=== PATIENT | female | born 1990 | race Caucasian/White ===

== ENCOUNTER → 2016-10-01 | Outpatient (REF) | payer BC | LOC: M LAB REF 12:35 | PROVIDERS: ATTEND Nurse Practitioner Women's Health | DX: R39.89 Other symptoms and signs involving the genitourinary system (principal) ==

== ENCOUNTER → 2019-11-23 | Outpatient (REF) | payer OTHER ==
[2019-11-23 18:03] LABS: HEMOGLOBIN 12.3 g/dl (12.0-15.5); MEAN CORPUSCULAR HEMOGLOBIN 30.3 pg (27.0-33.0); MEAN CORPUSCULAR HGB CONC 33.2 g/dl (32.0-36.5); MEAN CORPUSCULAR VOLUME 91.1 fl (80.0-96.0); PLATELET COUNT, AUTOMATED 220 10^3/uL (150-450); RED BLOOD COUNT 4.06 10^6/uL (4.00-5.40); WHITE BLOOD COUNT 9.7 10^3/uL (4.0-10.0)
[2019-11-23 21:12] LABS: CHLAMYDIA DNA AMPLIFICATION NEGATIVE (NEGATIVE); GC DNA AMPLIFICATION NEGATIVE (NEGATIVE)
[2019-11-24 09:17] LABS: HEPATITIS C VIRUS ABY INDEX 0.1 INDEX (<0.8); HIV 1&2 SCREEN CENTAUR NEGATIVE (NEGATIVE)
== END ==
LOC: M PLALAB 13:59
PROVIDERS: ATTEND Advanced Practice Midwife
DX: Z34.91 Encounter for supervision of normal pregnancy, unspecified, first trimester (principal)

== ENCOUNTER → 2020-02-04 | Outpatient (CLI) | payer OTHER ==
--- NOTE | 2020-02-23 13:50 | REP ---
COMPLETE OBSTETRICAL ULTRASOUND CLINICAL: Anatomical evaluation. TECHNIQUE: Transabdominal obstetrical ultrasound with color Doppler evaluation. FINDINGS: Ultrasound examination demonstrates single live intrauterine in variable presentation. Placenta noted posteriorly and grade 1 without evidence for placenta previa or abruption. Amniotic fluid volume is normal. Cervix measures 4.5 cm in length and appears closed. No evidence for nuchal cord. Gestational age by last menstrual period (LMP) 18 weeks 3 days with estimated date of delivery 07/04/2020. Gestational age by current measurements 18 weeks 6 days with estimated date of delivery 07/01/2020. heart rate (FHR) 152 beats per minute. MEASUREMENTS: BPD 4.1 cm 18 weeks 3 days HC 15.0 cm 18 weeks 0 days AC 13.7 cm 19 weeks 1 day FL 2.7 cm 18 weeks 0 days HL 2.6 cm 18 weeks 2 days HC/AC ratio 1.09 Estimated weight 246 g (53rd percentile) Anatomical assessment demonstrates normal cranium, choroid plexus, cerebellum/posterior fossa, facial features, four chamber heart/ventricular outflow tracts, diaphragm, stomach, kidney/bladder, spine, three-vessel cord, and extremities. IMPRESSION: * Single live intrauterine in variable presentation demonstrating appropriate estimated weight and growth. * Anatomical assessment is complete and normal. No gross abnormalities are identified. MTDD
== END ==
LOC: M WHC 07:01
PROVIDERS: ATTEND Obstetrics & Gynecology
DX: Z36.3 Encounter for antenatal screening for malformations (principal); Z3A.18 18 weeks gestation of pregnancy

== ENCOUNTER → 2020-03-28 | Outpatient (REF) | payer OTHER ==
[2020-03-28 14:03] LABS: MEAN CORPUSCULAR HEMOGLOBIN 32.3 pg (27.0-33.0); MEAN CORPUSCULAR HGB CONC 33.3 g/dl (32.0-36.5); PLATELET COUNT, AUTOMATED 192 10^3/uL (150-450); RED BLOOD COUNT 3.71 10^6/uL (4.00-5.40); WHITE BLOOD COUNT 10.2 10^3/uL (4.0-10.0)
== END ==
LOC: M PLALAB 08:51
PROVIDERS: ATTEND Advanced Practice Midwife
DX: Z34.90 Encounter for supervision of normal pregnancy, unspecified, unspecified trimester (principal); Z3A.00 Weeks of gestation of pregnancy not specified

== ENCOUNTER 2020-06-08 10:34 | Outpatient (CLI) | payer OTHER ==
[~2020-06-08] VITALS: Ht 175.3 cm; Wt 79.7 kg
[2020-06-08] MEDS ORDERED: MULTTAB20 PO (10:52)
[2020-06-08 10:59] VITALS: BP 128/75
[2020-06-08 13:51] VITALS: BP 119/65
--- NOTE | 2020-06-08 16:37 | IPNPDOC ---
Text Note Date of Service The patient was seen on 06/08/20. NOTE Triage visit Johana is a 29yo with SIUP at 36w2d presenting to triage for slipping on ice and fall onto left side at 0900 this morning. She note she felt some abdominal/uterine "cramping" afterwards and maybe some pelvic pressure, but feeling better now. No LOF, no vaginal bleeding, no regular ctx. Baby is moving well. Vitals wnl, afebrile Gen: WDWN, sitting up comfortable in NAD Abdomen: soft, gravid, NTTP Extremities: no edema of BLE Back/side: no bruising Cat I FHRT x4 hours with +accels, -decels, mod vinny No regular uterine activity Assessment: Johana is a 29yo with SIUP at 36w2 with NO e/o placental abruption with normal exam, reassuring status. Plan: -Discharge to home -Follow up at routine OB visit tomorrow as scheduled -Patient to rest today and hydrate well -Tylenol prn discomfort -Discussed return precautions at length Kajal Rodney MD VS,Fay, I+O VS, Fay, I+O Vital Signs Date Time Temp Pulse Resp B/P (MAP) Pulse Ox O2 Delivery O2 Flow Rate FiO2 06/08/20 13:51 88 119/65 (83) 06/08/20 10:59 98.4 18 Kajal Rodney MD Jun 08, 2020 16:37
== END 2020-06-08 15:25 | disposition home or self-care (01) ==
LOC: M LDO 10:34
PROVIDERS: ATTEND Obstetrics & Gynecology
DX: O99.891 Other specified diseases and conditions complicating pregnancy (principal); W00.0XXA Fall on same level due to ice and snow, initial encounter; Z3A.36 36 weeks gestation of pregnancy

== ENCOUNTER → 2020-06-09 | Outpatient (REF) | payer OTHER ==
[~2020-06-09] MED LIST: MULTTAB20 PO
== END ==
LOC: M SFHCWAGY 13:17
PROVIDERS: ATTEND Advanced Practice Midwife
DX: Z34.93 Encounter for supervision of normal pregnancy, unspecified, third trimester (principal)

== ENCOUNTER 2020-06-23 14:45 | Outpatient (CLI) | payer OTHER ==
[~2020-06-23] VITALS: Ht 175.3 cm; Wt 80.6 kg
[2020-06-23] MEDS ORDERED: TUMS500C PO (15:02)
[2020-06-23 15:18] VITALS: BP 133/74
--- NOTE | 2020-06-23 15:40 | IPNPDOC ---
Text Note Date of Service The patient was seen on 06/23/20. NOTE Outpatient Subjective: Johana is a 29 y/o at 38.3 weeks, LUCINDA 07/04/2020 by 1st trimester U/S on 11/23/19 at 7.5 weeks. She started care at [facility] in the first trimester. Presents to L&D today with a c/o contractions that started to become more regular around 11am. Denies vaginal bleeding, LOF. Reports active movement. Denies any other concerns. 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 Appears comfortable during contractions. Respiratory: Regular rate, no accessory muscle use Abdomen: Gravid, soft non-tender. Fetus: 125bpm baseline, moderate variability, positive accelerations, no decelerations, Category 1 [place]: UC every 5-7 minutes, lasting 80-120 seconds, palpate mild. Extremities: No edema, negative calf tenderness. SVE: 4-5/75/-2, soft, posterior by PAO Keller unchanged from SVE in office on 06/22/20 Assessment: IUP at 38.3weeks. Contractions at Term. Not in active labor. Not SROM. Plan: NST SVE in 1-2 hours Activity as tolerated Naomy Muñoz CNM Jun 23, 2020 15:40
--- NOTE | 2020-06-23 16:59 | IPNPDOC ---
Text Note Date of Service The patient was seen on 06/23/20. NOTE Outpatient Subjective: Johana reports contractions feel the same. Denies LOF, vaginal bleeding. Reports active movement. She has been using the birthing ball at the bedside. Objective: VS: normotensive, afebrile General: Alert and oriented x3. Respiratory: Respirations regular, no accessory muscle use Fetus: 125bpm baseline, moderate variability, no decelerations, positive accelerations, Category 1 FHT. [place]: UC 4-6 minutes, lasting 60-100 seconds, mild on palpation, resting tone soft SVE: 4-5/75/-2 by PAO Keller, unchanged from last SVE Assessment: IUP at 38.3 weeks. Contractions at term. Not in active labor. No SROM. Plan: Discharge home on labor precautions, discussed reasons to return including vaginal bleeding, LOF, contractions that become more intense or closer together, decreased movement. Patient and S/O agreeable to discharge at this time. VS,Fishbone, I+O VS, Fishbone, I+O Vital Signs Date Time Temp Pulse Resp B/P (MAP) Pulse Ox O2 Delivery O2 Flow Rate FiO2 06/23/20 15:18 98.9 85 133/74 (93) Naomy Muñoz CNM Jun 23, 2020 16:59
== END 2020-06-23 16:55 | disposition home or self-care (01) ==
LOC: M LDO 14:45
PROVIDERS: ATTEND Advanced Practice Midwife
DX: O47.1 False labor at or after 37 completed weeks of gestation (principal); Z3A.38 38 weeks gestation of pregnancy

== ENCOUNTER 2020-06-25 09:57 | Inpatient (IN) | payer OTHER ==
[~2020-06-25] VITALS: Ht 175.3 cm; Wt 80.0 kg
[2020-06-25] VITALS (23 sets, daily range): BP systolic 108–137; BP diastolic 57–94
[~2020-06-25 09:57] MED LIST changes: +TUMS500C PO
[2020-06-25] MEDS ORDERED: OXYTOCIN DRIP 30 UNITS in IV 1 EA IV SCH (11:00)
--- NOTE | 2020-06-25 11:01 | HPEPDOC ---
Obstetrical History & Physical General Date of Admission Jun 25, 2020 at 10:45 History of Present Illness 29 yo female at 38 5/7 weeks gestation by LMP c/w ultrasound (EDC=07/04/2020) presents with regular contractions every 2-3 minutes for the past day. She was seen in triage on 06/23/2020 for contractions, but they are stronger now. 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 Past Medical History Medical History term x 2 Surgical History: Denies/None Family History Significant Family History: No pertinent family hx Social History Marital Status: Family situation: Spouse/partner home Psychosocial History: No pertinent psych hx * Smoker: non-smoker Alcohol: Denies Allergies Coded Allergies: SEASONAL ALLERGIES (Verified Allergy, Unknown, 06/23/20) benzonatate (Verified Allergy, Unknown, 06/23/20) Medications Scheduled Calcium Carbonate (Tums) 200 Mg Tab.chew, 2 TAB PO QID for cough and congestion No122/Iron/Folic Acid ( Multi Tablet) 1 Each Tablet, 1 TAB PO DAILY Physical Examination Physical Examination GENERAL: Alert and oriented times three. BREAST: . ABDOMEN: Gravid and non-tender to touch. FETUS: Is vertex (VTX) by sterile vaginal examination (SVE), fetus is vertex (VTX) by Subhash. HEART RATE: Regular rate and rhythm. LUNGS: Clear to auscultation (CTA). EXTREMITIES: No edema. No clonus. Deep tendon reflexes (DTRs) + . Vital Signs/I&O Vital Signs Date Time Temp Pulse Resp B/P (MAP) Pulse Ox O2 Delivery O2 Flow Rate FiO2 06/25/20 10:11 98.6 84 132/76 (94) Pertinent Laboratoy Data Blood Type: O+ Group B Streptococcus: Negative Vaginal Examination Dilation: 5 cm Effacement: 70% Station: -2 Cervical Consistency: Soft Cervical Position: Posterior Presentation: Cephalic presentation Assessment Variability: Moderate Accelerations: Positive Decelerations: None Tocometer Contractions: Yes Frequency: regular, every 1-3 min. Duration: less than 60 seconds Strength: palpated as moderate Assessment/Plan Assessment Pt is a 29-year-old (G)3 para (P)2 at 38+5 weeks by LMP c/w ultrasound- week ultrasound presents to Labor and Delivery (L&D) in active labor. Plan Admit and orient. 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 Group B Streptococcus (GBS) negative. Labs and intravenous (IV) per unit protocol. Counseled on Pitocin and induction of labor (IOL). .Anticipate normal spontaneous delivery C-S as appropriate. ANTONI ANDERSON MD Jun 25, 2020 11:01
[2020-06-25] MEDS ORDERED: LR 1,000 ML IV SCH (11:15)
[2020-06-25 11:52] LABS: HEMATOCRIT 41.3 % (36.0-47.0); HEMOGLOBIN 13.8 g/dl (12.0-15.5); MEAN CORPUSCULAR HEMOGLOBIN 31.7 pg (27.0-33.0); MEAN CORPUSCULAR HGB CONC 33.4 g/dl (32.0-36.5); MEAN CORPUSCULAR VOLUME 94.9 fl (80.0-96.0); PLATELET COUNT, AUTOMATED 169 10^3/uL (150-450); RED BLOOD COUNT 4.35 10^6/uL (4.00-5.40); WHITE BLOOD COUNT 12.6 10^3/uL (4.0-10.0)
[2020-06-25] MEDS ORDERED: ACETAMINOPHEN TAB 650MG DOSE (2X325MG) PO PRN (20:00)
[2020-06-25] MEDS ORDERED: ONDANSETRON 4MG/2ML VIAL IV PRN (20:00)
[2020-06-25] MEDS ORDERED: MEASLES,MUMPS,RUBELLA VACCINE INJ (MMR-II) (90707) SC SCH (20:00)
[2020-06-25] MEDS ORDERED: OXYTOCIN DRIP 30 UNITS in IV 1 EA IV ONE (20:00)
[2020-06-25] MEDS ORDERED: DOCUSATE SODIUM 100MG CAPSULE PO PRN (20:00)
[2020-06-25] MEDS ORDERED: RHOGAM 300 MCG (1500 IU) INJ (J2790) IM SCH (20:00)
[2020-06-25] MEDS ORDERED: BENZOCAINE 20% HEMORRHOIDAL OINTMENT 28GM TUBE TOP PRN (20:00)
[2020-06-25] MEDS ORDERED: IBUPROFEN 600MG TAB PO PRN (20:00)
[2020-06-25] MEDS ORDERED: ACETAMINOPHEN 500 MG TAB PO PRN (20:00)
[2020-06-25] MEDS ORDERED: METHYLERGONOVINE MALEATE 0.2 MG TAB PO PRN (20:00)
[2020-06-25] MEDS: IBUPROFEN 800 MG TAB PO PRN (20:28)
--- NOTE | 2020-06-25 20:42 | DNPDOC ---
[facility] Delivery Note Delivery Note DATE OF DELIVERY: June 252020 PREDELIVERY DIAGNOSIS: 38-5/7 weeks' gestation and labor. POST DELIVERY DIAGNOSIS: Delivered. PROCEDURE: Spontaneous vaginal delivery. FAN BALANCER: Dr. Antoni Anderson MD ANESTHESIA: none. ESTIMATED BLOOD LOSS: 300 mL. FINDINGS: 7 pound 9 ounce female infant, Score 8/9. DELIVERY SUMMARY: Patient is a 29-year-old 3 now para 3 who was admitted to labor and delivery for labor. She eventually required Pitocin augmentation. After a short second s tage of labor lasting 5 minutes she had a spontaneous vaginal delivery of a 7 lbs. 9 oz. female infant. There was no nuchal cord. The shoulders delivered with ease. The infant was handed to the mother. Cord was doubly clamped and cut. Placenta delivered spontaneously, appeared to be intact. The patient received IV Pitocin immediately after delivery of placenta. There were no vaginal lacerations present. Sponge counts were correct. ANTONI ANDERSON MD Jun 25, 2020 20:42
[2020-06-26 06:18] VITALS: BP 119/58
[2020-06-26] MEDS: PRENATAL VITAMINS CHEWABLE TABLET PO SCH (09:00)
[2020-06-26] MEDS: IBUPROFEN 800 MG TAB PO PRN (12:24)
[2020-06-26 18:00] VITALS: BP 137/71
[2020-06-27 06:00] VITALS: BP 116/57
[2020-06-27] MEDS: PRENATAL VITAMINS CHEWABLE TABLET PO SCH (07:21)
[2020-06-27] MEDS: IBUPROFEN 800 MG TAB PO PRN (07:22)
--- NOTE | 2020-06-27 07:28 | DS.PDOC ---
Discharge Summary General Date of Admission Jun 25, 2020 at 10:45 Date of Discharge 06/27/2020 Discharge Summary PROCEDURES PERFORMED DURING STAY: . ADMITTING DIAGNOSES: 1. Active Labor at Term. DISCHARGE DIAGNOSES: 1. s/p . COMPLICATIONS/CHIEF COMPLAINT: LABOR. HISTORY OF PRESENT ILLNESS: SUBJECT: Johana is a 29-year-old 3 now Para 3-0-0-3 status post uncomplicated spontaneous vaginal delivery, doing well day # 2. She has been ambulating, voiding spontaneously without issue and tolerating regular diet. without issue. Reports lochia is like a normal period. Pain well controlled with Tylenol and Motrin. Denies c hest pain, SOB, headache, visual changes, nausea, epigastric pain. Discussed options for control including POPs, Mirena, Depo, and Nexplanon. Her is planning a vasectomy, unsure of the timing. She will decide by her 6 week follow up, declined Depo today. HOSPITAL COURSE: Uncomplicated. DISCHARGE MEDICATIONS: Please see below. ALLERGIES: Please see below. PHYSICAL EXAMINATION ON DISCHARGE: VITAL SIGNS: Please see below. GENERAL: Alert and oriented x3. HEENT: Normal on inspection. NECK: Supple, no JVD. CARDIOVASCULAR EXAMINATION: Regular rate and rhythm. RESPIRATORY EXAMINATION: Respirations regular, no accessory muscle use. ABDOMINAL EXAMINATION: Soft, nontender, no distention. Fundus firm at U-2, minimal lochia. EXTREMITIES: No edema. No calf tenderness. SKIN: Warm, dry, intact, appropriate color for race. NEUROLOGICAL EXAMINATION: Grossly intact. PSYCHIATRIC EXAMINATION: Denies s/s of depression at this time. LABORATORY DATA: Please see below. PROGNOSIS: Good. ACTIVITY: As tolerated. DIET: Regular DISCHARGE PLAN: Home with infant DISPOSITION: Stable DISCHARGE INSTRUCTIONS: 1. Nothing in the vagina for 6 weeks. 2. Tylenol and Motrin as needed. 3. Reviewed return precautions including s/s of preeclampsia, depression, endometritis, mastitis. ITEMS TO FOLLOWUP ON ON OUTPATIENT: 1. 6 week follow up. DISCHARGE CONDITION: Stable. TIME SPENT ON DISCHARGE: Greater than 15 minutes. Vital Signs/I&Os Vital Signs Date Time Temp Pulse Resp B/P (MAP) Pulse Ox O2 Delivery O2 Flow Rate FiO2 06/27/20 06:00 98.0 71 17 116/57 (76) 97 Room Air Discharge Medications Scheduled Calcium Carbonate (Tums) 200 Mg Tab.chew, 2 TAB PO QID for cough and congestion, (Reported) No122/Iron/Folic Acid ( Multi Tablet) 1 Each Tablet, 1 TAB PO DAILY, (Reported) Allergies Coded Allergies: SEASONAL ALLERGIES (Verified Allergy, Unknown, 06/23/20) benzonatate (Verified Allergy, Unknown, 06/23/20) ESSENCE VILLA CNM Jun 27, 2020 07:28
[2020-06-27] MEDS ORDERED: IBUP80TA PO (07:44)
[2020-06-27] MEDS ORDERED: ACET-683 PO (07:44)
== END 2020-06-27 10:50 | disposition home or self-care (01) | DRG 560 ==
LOC: M LDO 09:57 → M LDI 10:45 → M OBS 21:20
PROVIDERS: ADMIT Specialist; ATTEND Specialist
PROC: 10E0XZZ Delivery of Products of Conception, External Approach (ICD-10-PCS; principal; 2020-06-25)
DX: O80 Encounter for full-term uncomplicated delivery (principal); Z37.0 Single live birth; Z3A.38 38 weeks gestation of pregnancy

== ENCOUNTER → 2022-06-07 | Outpatient (REF) | payer OTHER ==
[~2022-06-07] MED LIST changes: +ACET-683 PO; +IBUP80TA PO
== END ==
LOC: M PLALAB 11:34
PROVIDERS: ATTEND Nurse Practitioner Family
DX: Z12.4 Encounter for screening for malignant neoplasm of cervix (principal)

== ENCOUNTER → 2022-08-19 | Outpatient (CLI) | payer OTHER | LOC: M WHC 13:29 | PROVIDERS: ATTEND Nurse Practitioner Family | DX: N63.11 Unspecified lump in the right breast, upper outer quadrant (principal); N60.11 Diffuse cystic mastopathy of right breast ==

== ENCOUNTER → 2023-02-07 | Outpatient (CLI) | payer OTHER ==
[2023-02-07 15:37] LABS: HEMATOCRIT 38.2 % (36.0-47.0); MEAN CORPUSCULAR HEMOGLOBIN 30.7 pg (27.0-33.0); MEAN CORPUSCULAR VOLUME 90.3 fl (80.0-96.0); PLATELET COUNT, AUTOMATED 214 10^3/uL (150-450); RED BLOOD COUNT 4.23 10^6/uL (4.00-5.40); WHITE BLOOD COUNT 10.5 10^3/uL (4.0-10.0)
[2023-02-07 16:28] LABS: HIV 1&2 SCREEN NEGATIVE (NEGATIVE)
[2023-02-07 16:36] LABS: HEPATITIS C VIRUS ABY INDEX 0.12 INDEX (<0.8)
[2023-02-07 17:10] LABS: GC DNA AMPLIFICATION NEGATIVE (NEGATIVE)
== END ==
LOC: M PLALAB 14:22
PROVIDERS: ATTEND Obstetrics & Gynecology
DX: Z36.9 Encounter for antenatal screening, unspecified (principal)

== ENCOUNTER → 2023-03-31 | Outpatient (CLI) | payer OTHER | LOC: M WHC 12:51 | PROVIDERS: ATTEND Obstetrics & Gynecology | DX: Z34.92 Encounter for supervision of normal pregnancy, unspecified, second trimester (principal); Z3A.18 18 weeks gestation of pregnancy ==

== ENCOUNTER → 2023-05-21 | Outpatient (CLI) | payer OTHER ==
[2023-05-21 15:54] LABS: HEMOGLOBIN 12.6 g/dl (12.0-15.5); MEAN CORPUSCULAR HEMOGLOBIN 31.5 pg (27.0-33.0); MEAN CORPUSCULAR HGB CONC 33.2 g/dl (32.0-36.5); PLATELET COUNT, AUTOMATED 224 10^3/uL (150-450); WHITE BLOOD COUNT 14.5 10^3/uL (4.0-10.0)
[2023-05-21 17:21] LABS: CHLAMYDIA DNA AMPLIFICATION NEGATIVE (NEGATIVE); GC DNA AMPLIFICATION NEGATIVE (NEGATIVE)
== END ==
LOC: M PLALAB 11:01
PROVIDERS: ATTEND Obstetrics & Gynecology
DX: Z36.89 Encounter for other specified antenatal screening (principal); Z3A.22 22 weeks gestation of pregnancy

== ENCOUNTER → 2023-07-30 | Outpatient (REF) | payer OTHER | LOC: M SFHCWAGY 12:59 | PROVIDERS: ATTEND Obstetrics & Gynecology | DX: Z3A.36 36 weeks gestation of pregnancy (principal) ==

== ENCOUNTER → 2023-08-11 | Outpatient (CLI) | payer OTHER ==
[2023-08-11 13:41] LABS: URIC ACID 6.1 MG/DL (3.1-7.8)
[2023-08-11 13:44] LABS: ALT/SGPT 22 U/L (7.0-40); AST/SGOT 22 U/L (<34); BILIRUBIN,TOTAL 0.5 MG/DL (0.3-1.2); GLOMERULAR FILTRATION RATE > 60.0 (>60); LDH LACTATE DEHYDROGENASE 168 U/L (120-246)
[2023-08-11 13:45] LABS: CREATININE,RANDOM URINE 19.4 MG/DL
[2023-08-11 13:48] LABS: TOTAL PROTEIN,RANDOM URINE < 6.0 MG/DL (0.0-14.0)
== END ==
LOC: M PLALAB 09:32
PROVIDERS: ATTEND Obstetrics & Gynecology
DX: R03.0 Elevated blood-pressure reading, without diagnosis of hypertension (principal)

== ENCOUNTER 2023-08-17 07:46 | Inpatient (IN) | payer OTHER ==
[2023-08-17] VITALS (40 sets, daily range): BP systolic 105–153; BP diastolic 55–90
[~2023-08-17] VITALS: Ht 175.3 cm; Wt 81.1 kg
[2023-08-17 08:47] LABS: HEMATOCRIT 36.4 % (36.0-47.0); HEMOGLOBIN 12.5 g/dl (12.0-15.5); MEAN CORPUSCULAR HEMOGLOBIN 31.5 pg (27.0-33.0); MEAN CORPUSCULAR HGB CONC 34.3 g/dl (32.0-36.5); MEAN CORPUSCULAR VOLUME 91.7 fl (80.0-96.0); PLATELET COUNT, AUTOMATED 150 10^3/uL (150-450); RED BLOOD COUNT 3.97 10^6/uL (4.00-5.40); WHITE BLOOD COUNT 10.1 10^3/uL (4.0-10.0)
[2023-08-17] MEDS: miSOPROStol 50MCG 1/2 TABLET PO PRN (09:07)
[2023-08-17] MEDS: LR 1,000 ML IV SCH (13:14)
[2023-08-17] MEDS: OXYTOCIN DRIP 30 UNITS in IV 1 EA IV SCH ×2 (13:14→23:10)
[2023-08-17] MEDS: CALCIUM CARBONATE 500 MG CHEW U/D PO ONE (15:58)
[2023-08-17] MEDS ORDERED: ONDANSETRON 4MG 2ML VIAL IV PRN (19:40)
[2023-08-17] MEDS ORDERED: diphenhydrAMINE 50MG/ML VIAL IV PRN (19:40)
[2023-08-17] MEDS ORDERED: ePHEDrine SULFATE 25 MG/5 ML(5MG/ML) SYRINGE IVP PRN (19:40)
[2023-08-17] MEDS ORDERED: EPIDURAL/PCA KEYS XX PRN (19:40)
[2023-08-17] MEDS ORDERED: NALOXONE INJ 0.4MG/1ML VIAL IV PRN (19:40)
[2023-08-17] MEDS ORDERED: LR 500 ML IV PRN (19:40)
[2023-08-17] MEDS: FENTANYL/ROPIVACAINE/NACL BAG 100 ML EPIDURAL SCH (20:15)
[2023-08-17] MEDS ORDERED: RHOGAM 300MCG (1500IU) INJ IM SCH (23:10)
[2023-08-17] MEDS ORDERED: METHYLERGONOVINE MALEATE 0.2 MG TAB PO PRN (23:10)
[2023-08-17] MEDS ORDERED: DOCUSATE SODIUM 100MG CAPSULE PO PRN (23:10)
[2023-08-17] MEDS ORDERED: DIBUCAINE 1% OINTMENT 30GM TOP PRN (23:10)
[2023-08-17] MEDS ORDERED: ACETAMINOPHEN TAB 650MG DOSE (2X325MG) PO PRN (23:10)
[2023-08-17] MEDS ORDERED: IBUPROFEN 600MG TAB PO PRN (23:10)
[2023-08-17 23:19] LABS: CORD GAS ABE A -6.5; CORD GAS HCO3 A 22.5 MMOL/L; CORD GAS O2 SAT A 60.1 %; CORD GAS PCO2 A 58.8 mmHg; CORD GAS PH A 7.201 UNITS; CORD GAS PO2 A 27.2 mmHg; CORD GAS SBC A 18.4 MMOL/L; CORD GAS TCO2 A 24.3 MMOL/L
[2023-08-17 23:20] LABS: CORD GAS ABE V -5.7; CORD GAS O2 SAT V 73.6 %; CORD GAS PCO2 V 45.4 mmHg; CORD GAS PH V 7.283 UNITS; CORD GAS PO2 V 31.4 mmHg; CORD GAS SBC V 19.3 MMOL/L; CORD GAS TCO2 V 22.4 MMOL/L
[2023-08-17] MEDS: BICITRA 30ML SOLN UDC PO ONE (23:24)
[2023-08-17] MEDS: ACETAMINOPHEN 500 MG TAB PO PRN (23:50)
[2023-08-18 00:14] VITALS: BP 114/55
[2023-08-18 01:20] VITALS: BP 120/70; O2SAT 99
[2023-08-18] MEDS: IBUPROFEN 800 MG TAB PO PRN (01:22)
[2023-08-18 06:05] VITALS: BP 116/58; O2SAT 98
[2023-08-18] MEDS: PRENATAL VITAMINS CHEWABLE TABLET PO SCH (09:53)
[2023-08-18] MEDS ORDERED: PERCOCET 5MG/325MG TAB PO PRN (13:00)
[2023-08-18] MEDS ORDERED: ANUSOL HC CREAM 30GM TOP PRN (14:30)
[2023-08-18 17:46] VITALS: BP 129/68; O2SAT 99
[2023-08-19 06:00] VITALS: BP 122/65; O2SAT 100
[2023-08-19] MEDS ORDERED: MEASLES,MUMPS,RUBELLA VACCINE INJ (MMR-II) SC.IMMUN ONE (09:00)
[2023-08-19] MEDS ORDERED: ACET-683 PO (11:39)
[2023-08-19] MEDS ORDERED: IBUP80TA PO (11:39)
== END 2023-08-19 12:15 | disposition home or self-care (01) | DRG 560 ==
LOC: M LDI 07:46 → M OBS 08-18 01:44
PROVIDERS: ADMIT Obstetrics & Gynecology; ATTEND Obstetrics & Gynecology
PROC: 10E0XZZ Delivery of Products of Conception, External Approach (ICD-10-PCS; principal; 2023-08-17)
PROC: 10907ZC Drainage of Amniotic Fluid, Therapeutic from Products of Conception, Via Natural or Artificial Opening (ICD-10-PCS; 2023-08-17)
PROC: 3E033VJ Introduction of Other Hormone into Peripheral Vein, Percutaneous Approach (ICD-10-PCS; 2023-08-17)
PROC: 3E0DXGC Introduction of Other Therapeutic Substance into Mouth and Pharynx, External Approach (ICD-10-PCS; 2023-08-17)
DX: O69.82X0 Labor and delivery complicated by other cord entanglement, without compression, not applicable or unspecified (principal); Z87.59 Personal history of other complications of pregnancy, childbirth and the puerperium; Z37.0 Single live birth; Z3A.39 39 weeks gestation of pregnancy

== ENCOUNTER → 2024-03-11 | Outpatient (REF) | payer OTHER, MEDICAID | LOC: M SFHCWAGY 17:36 | PROVIDERS: ATTEND Nurse Practitioner Family | DX: Z12.4 Encounter for screening for malignant neoplasm of cervix (principal) ==

== ENCOUNTER → 2024-07-22 | Outpatient (REF) | payer OTHER ==
[2024-07-22 12:56] LABS: BASO # 0.1 10^3/uL (0.0-0.2); BASO % 1.4 % (0.0-1.0); EOS # 0.7 10^3/uL (0.0-0.5); HEMATOCRIT 39.7 % (36.0-47.0); LYMPH # 2.6 10^3/uL (1.5-5.0); LYMPH % 40.6 % (24.0-44.0); MEAN CORPUSCULAR HEMOGLOBIN 29.1 pg (27.0-33.0); MEAN CORPUSCULAR HGB CONC 32.7 g/dl (32.0-36.5); MEAN CORPUSCULAR VOLUME 88.8 fl (80.0-96.0); MONO # 0.3 10^3/uL (0.0-0.8); MONO % 5.3 % (2.0-8.0); NEUTROPHILS # 2.8 10^3/uL (1.5-8.5); NEUTROPHILS % 42.5 % (36.0-66.0); PLATELET COUNT, AUTOMATED 263 10^3/uL (150-450); RED BLOOD COUNT 4.47 10^6/uL (4.00-5.40); WHITE BLOOD COUNT 6.5 10^3/uL (4.0-10.0)
[2024-07-22 13:03] LABS: ALKALINE PHOSPHATASE 96 U/L (35-104); ALT/SGPT 26 U/L (7.0-40); AST/SGOT 15 U/L (<34); BILIRUBIN,TOTAL 0.6 MG/DL (0.3-1.2); BLOOD UREA NITROGEN 15 MG/DL (9-23); CALCIUM LEVEL 9.3 MG/DL (8.5-10.1); CARBON DIOXIDE LEVEL 30 MMOL/L (20-31); CHLORIDE LEVEL 108 MMOL/L (98-107); CHOLESTEROL LEVEL 191 MG/DL (<200); CHOLESTEROL RISK RATIO 3.05 (<5); CREATININE FOR GFR 0.76 MG/DL (0.55-1.30); GLOMERULAR FILTRATION RATE > 60.0 (>60); GLUCOSE, FASTING 83 MG/DL (60-100); HDL CHOLESTEROL 62.6 MG/DL (>40); LDL CHOLESTEROL 115.6 MG/DL (<100); NON-HDL-C 128.4 MG/DL; POTASSIUM SERUM 4.5 MMOL/L (3.5-5.1); SODIUM LEVEL 143 MMOL/L (136-145); TOTAL PROTEIN 6.8 G/DL (5.7-8.2); TRIGLYCERIDES LEVEL 64 MG/DL (<150)
[2024-07-22 13:04] LABS: PERCENT SATURATION 58.6 % (13.2-45.0)
[2024-07-22 13:06] LABS: THYROID STIMULATING HORMONE 1.429 uIU/ML (0.55-4.78)
[2024-07-22 13:07] LABS: FREE T4 1.28 NG/DL (0.89-1.76)
== END ==
LOC: M SFHCCLAY 08:59
PROVIDERS: ATTEND Physician Assistant
DX: Z00.00 Encounter for general adult medical examination without abnormal findings (principal); R53.83 Other fatigue